=== PATIENT | female | born 1960 | race Caucasian/White ===

== ENCOUNTER → 2016-05-30 | Outpatient (CLI) | payer OTHER ==
--- NOTE | ~2016-05-30 | MR164 ---
[facility] A Service of [facility] RADIOLOGY TEXT RESULTS PATIENT: MATT LEYVA LOCATION: [facility] : 60 UNIT #: [id number] AGE: [address]: Randy Ellis IV, MD SEX: F ORDER DR: [id number] [facility] [address] [place], [place] [address] [id number] O MR#: [id number] Acc #: [id number] NAME: MATT LEYVA : 1960 SEX: F STUDY DATE/TIME: 05/30/2016 13:18 UNIT: [facility] ROOM: STUDY DESCRIPTION: MR Shoulder Wo Contrast Lt Attending Physician: Randy Ellis M.D. Referring Physician: Randy Ellis M.D. Ordering Physician: Randy Ellis M.D. Primary Care Physician: Merna Heredia A.P.R.N. MRI CENTER REPORT This report is preliminary unless electronic signature is present. EXAM MRI left shoulder 05/30/2016 COMPARISON Left shoulder radiographs 03/10/2016. HISTORY Order states left shoulder pain, decreased range of motion, instability. History sheet states no trauma. Pain started November 2015. Decreased range of motion in all directions since November 2015. 3 injections helped but symptoms not really better. Stage III kidney disease without dialysis. FINDINGS There is motion degradation with BLADE and repeat sequences performed. There is mild hypertrophic AC joint arthrosis with capsuloligamentous thickening and osteophyte formation. The latter predominates along the superior aspect of the clavicle. Coracoclavicular and coracoacromial ligaments are normal. There is diffuse supraspinatus and infraspinatus tendinosis. There is a high-grade partial articular sided undersurface supraspinatus insertional tear measuring at least 13 mm AP x 6 mm transverse with equivocal pinhole full-thickness component. There is no tendon retraction. This is compatible with a rim rent tear. Teres minor and subscapularis tendons are intact. Biceps anchor, biceps tendon, glenoid labrum are normal. Glenohumeral joint shows no effusion, chondral/osteochondral lesion, or visible loose body. There is no obvious capsular inflammation. Muscles are normal. There is no marrow lesion. The subacromial - [facility] A Service of [facility] RADIOLOGY TEXT RESULTS PATIENT: MATT LEYVA LOCATION: [facility] : 60 UNIT #: [id number] AGE: [address]: Randy Ellis IV, MD SEX: F ORDER DR: subdeltoid and subcoracoid bursae are normal. IMPRESSION 1. High-grade 13 x 6 mm articular sided anterior insertional rim-rent partial undersurface tear with potential small pinhole full-thickness component but no associated subacromial - subdeltoid bursitis or tendon retraction. 2. Mild acromioclavicular joint hypertrophic arthrosis. 3. The exam is otherwise within normal limits. Dictated by... Kacie Sanon M.D. THIS IS AN ELECTRONICALLY VERIFIED REPORT Kacie Sanon M.D. at 06/02/2016 11:42 AM OLGA/lolis TD: 06/02/2016 11:32 JOB #: [id number] MRI CENTER REPORT Page 1 of 1 COPY
== END | disposition home or self-care (01) ==
LOC: CMRI 12:43
DX: M75.102 Unspecified rotator cuff tear or rupture of left shoulder, not specified as traumatic (principal); M75.112 Incomplete rotator cuff tear or rupture of left shoulder, not specified as traumatic; M19.012 Primary osteoarthritis, left shoulder
CPT/HCPCS: 73221

== ENCOUNTER → 2016-05-30 | Outpatient (CLI) | payer OTHER ==
--- NOTE | ~2016-05-30 | EKG ---
PATIENT: MATT LEYVA UNIT #: [id number] Ventricular Rate: 60 BPM Atrial Rate: 60 BPM P-R Interval: 148 ms QRS Duration: 86 ms Q-T Interval: 432 ms QTC Calculation(Bezet): 432 ms P [place]: 23 degrees Calculated R [place]: 12 degrees Calculated T [place]: 20 degrees Diagnosis Line: Normal sinus rhythm Diagnosis Line: Nonspecific T wave abnormality Diagnosis Line: Abnormal ECG Diagnosis Line: No previous ECGs available Diagnosis Line: Confirmed by JAYASHREE MCCOY MD ([id number]) on Diagnosis Line: 05/31/2016 6:49:17 AM INTERPRETING MD: CORWIN
== END | disposition home or self-care (01) ==
LOC: CEKG 12:53
DX: Z01.810 Encounter for preprocedural cardiovascular examination (principal); H61.301 Acquired stenosis of right external ear canal, unspecified
CPT/HCPCS: 93005